=== PATIENT | female | born 1965 | race Caucasian/White ===

== ENCOUNTER 2018-09-02 01:08 | Inpatient (IN) | payer MEDICAID ==
[2018-09-02] VITALS (7 sets, daily range): BP systolic 127–164; BP diastolic 46–96; Ht 154.9 cm; Wt 56.2 kg
[~2018-09-02] VITALS: Ht 154.9 cm; Wt 56.2 kg
[2018-09-02] MEDS ORDERED: COZAAR25 MG (01:17)
[2018-09-02] MEDS ORDERED: LIPITOR20 MG (01:17)
[2018-09-02] MEDS ORDERED: TOPROL XL25 MG (01:17)
[2018-09-02] MEDS ORDERED: INHALERS (01:17)
[2018-09-02] MEDS ORDERED: FUROSEMIDE20 MG (01:17)
[2018-09-02 01:34] LABS: HEMATOCRIT 34.2 % (36.0-48.0); HEMOGLOBIN 11.8 g/dL (12-16); LYMPHOCYTES 20.3 % (15-50); MCH 30.4 pg (26.0-34.0); MCHC 34.5 g/dL (31.0-37.0); MCV 88.1 fL (80.0-100.0); MEAN PLATELET VOLUME 9.9 fL (7.4-10.4); NEUTROPHILS 68.9 % (40-80); PLATELET COUNT 208 10x3/uL (130-400); RBC 3.88 10x6/uL (4.00-5.40); RDW 13.9 % (11.5-14.5); WBC 8.4 10x3/uL (4.8-10.8)
[2018-09-02 01:42] LABS: APTT 25.9 SECONDS (22.8-39.4); INR 1.05 (0.85-1.17); PROTIME 13.2 SECONDS (11.6-15.0)
[2018-09-02 01:50] LABS: ALBUMIN 2.6 g/dL (3.4-5.0); ALKALINE PHOSPHATASE 69 U/L (46-116); ALT (SGPT) 19 U/L (10-68); BILIRUBIN - TOTAL 0.67 mg/dL (0.2-1.3); CALC OSMOLALITY 278 mosm/kg (275-300); CALCIUM 8.5 mg/dL (8.5-10.1); CARBON DIOXIDE 25.7 mmol/L (21.0-32.0); CHLORIDE - SERUM 101 mmol/L (98-107); CREATININE - SERUM 0.8 mg/dL (0.6-1.3); GLUCOSE 124 mg/dL (74-106); POTASSIUM - SERUM 3.1 mmol/L (3.5-5.1); PROTEIN - SERUM 7.2 g/dL (6.4-8.2); SODIUM 139 mmol/L (136-145); UREA NITROGEN 12 mg/dL (7-18); eGFR NON AFRICAN AMERICAN 79 mL/min (90-120)
[2018-09-02 02:07] LABS: CKMB 1.5 U/L (0.0-3.6); CREATINE KINASE 71 UL (21-215); MAGNESIUM - SERUM 1.7 mg/dL (1.8-2.4)
[2018-09-02 02:11] LABS: TROPONIN-I 0.081 ng/mL (0.000-0.060)
--- NOTE | 2018-09-02 02:12 | NUR ---
PT AMBULATED TO RESTROOM INDEPENDENTLY.
--- NOTE | 2018-09-02 03:34 | NUR ---
PT GIVEN WARM BLANKETS.
--- NOTE | 2018-09-02 05:01 | NUR ---
PT'S IV ROCEPHIN FINISHED.
--- NOTE | 2018-09-02 05:20 | NUR ---
PT ARRIVED ON UNIT VIA WHEELCHAIR, ESCORTED BY WATER CONTROL SUPERVISOR. POSITIONED IN BED FOR COMFORT. PLACED SCD'S ON PER ORDER. PLACED TELEMETRY ON PER ORDER AND PT READING [address] AT THIS ASSESSMENT. ORIENTED TO ROOM AND CALL LIGHT. NON SKID SOCKS PLACED FOR SAFETY. SIDE RAILS UP X2, BED AT LOWEST LEVEN AND LOCKED.
--- NOTE | 2018-09-02 05:25 | NUR ---
IV FLUIDS CONTINUED FROM ER...NS @ 100. RE-STARTED IVPB ZITHROMAX PER ORDER.
--- NOTE | 2018-09-02 05:56 | NUR ---
ADMISSION ASSESSMENT AND HISTORY COMPLETE.
--- NOTE | 2018-09-02 19:00 | NUR ---
PT ALERT AND ORIENTED WHEN ENTERING THE ROOM. PT HAS MORPHINE CIRCULAR SAW FILER A. ABDOMINAL SCARRING NOTED FROM PREVIOUS SURGERIES. NO OTHER COMPLAINTS AT THIS TIME. PT HAS COLOSTOMY. PROVIDES SELF CARE. CALL LIGHT IN HAND.
[2018-09-03 05:27] VITALS: BP 161/104
--- NOTE | 2018-09-03 06:51 | NUR ---
I CONCUR WITH TALENT ADVISOR ASSESSMENT.
[2018-09-03 06:54] LABS: BASOPHILS 0 % (0-2); EOSINOPHILS 0 % (0-7); HEMATOCRIT 33.8 % (36.0-48.0); HEMOGLOBIN 11.2 g/dL (12-16); IMMATURE GRANULOCYTES 0.3 % (0-5); LYMPHOCYTES 10.5 % (15-50); MCH 29.4 pg (26.0-34.0); MCHC 33.1 g/dL (31.0-37.0); MCV 88.7 fL (80.0-100.0); MEAN PLATELET VOLUME 10.8 fL (7.4-10.4); MONOCYTES 1.2 % (2-11); RBC 3.81 10x6/uL (4.00-5.40); RDW 13.8 % (11.5-14.5); WBC 7.6 10x3/uL (4.8-10.8)
[2018-09-03 07:02] LABS: PLATELET COUNT 252 10x3/uL (130-400)
[2018-09-03 07:11] LABS: CARBON DIOXIDE 23.1 mmol/L (21.0-32.0); CHLORIDE - SERUM 101 mmol/L (98-107); CREATININE - SERUM 0.8 mg/dL (0.6-1.3); POTASSIUM - SERUM 3.5 mmol/L (3.5-5.1); SODIUM 136 mmol/L (136-145); eGFR NON AFRICAN AMERICAN 79 mL/min (90-120)
[2018-09-03 07:13] LABS: CALC OSMOLALITY 277 mosm/kg (275-300); GLUCOSE 181 mg/dL (74-106); UREA NITROGEN 16 mg/dL (7-18)
[2018-09-03 09:00] VITALS: BP 150/99
[2018-09-03 13:40] VITALS: BP 160/99
[2018-09-03 18:20] VITALS: BP 115/49
[2018-09-03 19:50] VITALS: BP 142/99
--- NOTE | 2018-09-03 20:30 | NUR ---
PT ALERT AND ORIENTED WHEN ENTERING THE ROOM. PATIENT LUNGS PRESENT WITH BOTH INSPIRATORY AND EXPIRATORY WHEEZES AND A PRODUCTIVE COUGH. PROVIDED PATIENT WITH INCENTIVE SPIROMETER AND PROVIDED INSTRUCTIONS ON USE AND HOW OFTEN. PATIENT PROVIDED RETURN DEMONSTRATION. NO OTHER COMPLAINTS AT THIS TIME.
--- NOTE | 2018-09-04 04:59 | NUR ---
RN NOTE: AGREE WITH THREAD PULLING MACHINE ATTENDANT ASSESSMENT.
[2018-09-04 06:33] VITALS: BP 114/70
[2018-09-04 06:51] LABS: BASOPHILS 0 % (0-2); EOSINOPHILS 0 % (0-7); HEMOGLOBIN 10.4 g/dL (12-16); IMMATURE GRANULOCYTES 0.3 % (0-5); LYMPHOCYTES 7.3 % (15-50); MCH 29.5 pg (26.0-34.0); MCHC 32.5 g/dL (31.0-37.0); MEAN PLATELET VOLUME 10.1 fL (7.4-10.4); NEUTROPHILS 89.4 % (40-80); PLATELET COUNT 286 10x3/uL (130-400); RBC 3.52 10x6/uL (4.00-5.40); RDW 14.2 % (11.5-14.5)
[2018-09-04 06:57] LABS: MCV 90.9 fL (80.0-100.0); WBC 13.8 10x3/uL (4.8-10.8)
[2018-09-04 07:16] LABS: ALBUMIN 2.4 g/dL (3.4-5.0); ANION GAP 15.9 mmol/L (8-16); BILIRUBIN - TOTAL 0.35 mg/dL (0.2-1.3); CALCIUM 7.8 mg/dL (8.5-10.1); CARBON DIOXIDE 21.9 mmol/L (21.0-32.0); CREATININE - SERUM 0.9 mg/dL (0.6-1.3); POTASSIUM - SERUM 3.8 mmol/L (3.5-5.1); PROTEIN - SERUM 6.5 g/dL (6.4-8.2)
--- NOTE | 2018-09-04 07:50 | NUR ---
PT C/O FEET BEING SWOLLEN, PT STATES SHE TAKES LASIX DAILY BUT RAN OUT IN MID JULY AND WOULD LIKE THEM TO BE RESTARTED, ADVISED PT TO TALK TO IN REGARDS TO RETARTING HOME MEDS. COMPLETED PT HOME LIST, CONTINUE WITH PLAN OF CARE
[2018-09-04 09:40] VITALS: BP 121/88
--- NOTE | 2018-09-04 14:00 | NUR ---
RN NOTE: PT LYING IN BED WITH MASK OVER EYES. LUNCH TRAY IN FRONT OF PT, WOKE PT TO EAT LUNCH, PER PT NOT VERY HUNGRY AND GETS IN THESE MOODS AT TIMES, NO NEEDS VOICED, CL IN REACH BED IN LOWEST POSITION
[2018-09-04 14:15] VITALS: BP 134/91
--- NOTE | 2018-09-04 15:02 | NUR ---
PT GOT IN SHOWER THIS MORNING AND HAS TAKEN HER NICOINE PATCH OFF BEFORE GETTING IN, PT IS NOW TELLING RT THAT SHE IS DYING FOR A NICOTINE PATCH, TIRED TO WAST THE ONE FROM EARLIER BUT PYXSIS DID NOT PULL UP
[2018-09-04 18:48] VITALS: BP 154/98
[2018-09-04 20:00] VITALS: BP 152/105
[2018-09-05 04:00] VITALS: BP 121/85
[2018-09-05 05:06] LABS: BASOPHILS 0 % (0-2); EOSINOPHILS 0 % (0-7); HEMATOCRIT 32.4 % (36.0-48.0); HEMOGLOBIN 10.5 g/dL (12-16); IMMATURE GRANULOCYTES 0.5 % (0-5); LYMPHOCYTES 7.3 % (15-50); MCH 29.4 pg (26.0-34.0); MCHC 32.4 g/dL (31.0-37.0); MCV 90.8 fL (80.0-100.0); MEAN PLATELET VOLUME 10.1 fL (7.4-10.4); MONOCYTES 4.4 % (2-11); NEUTROPHILS 87.8 % (40-80); PLATELET COUNT 308 10x3/uL (130-400); RBC 3.57 10x6/uL (4.00-5.40); RDW 14.2 % (11.5-14.5); WBC 14.4 10x3/uL (4.8-10.8)
[2018-09-05 05:21] LABS: ALBUMIN 2.5 g/dL (3.4-5.0); ANION GAP 16.9 mmol/L (8-16); BILIRUBIN - TOTAL 0.57 mg/dL (0.2-1.3); CALCIUM 8.1 mg/dL (8.5-10.1); CARBON DIOXIDE 19.4 mmol/L (21.0-32.0); CREATININE - SERUM 0.9 mg/dL (0.6-1.3); POTASSIUM - SERUM 4.3 mmol/L (3.5-5.1); PROTEIN - SERUM 6.6 g/dL (6.4-8.2)
--- NOTE | 2018-09-05 07:25 | NUR ---
PT RESTING IN BED, EYES OPEN. PT ALERT AND ORIENTED. PT UP AD DAVID. PT HAS COLOSTOMY LEFT UPPER QUADRANT. SCARRING ON ABD. PT ON ELECTROLYTE PROTOCOL. PT HAS SCDS PRESENT AND ON. PT ON 3L O2, NC. PT ON TELEMETRY [address] ST. IV TO RIGHT FOREARM, NS INFUSING @ 100, MORPHINE ACIDIZER HELPER 1-10-10. SITE PATENT WITHOUT REDNESS OR SWELLING. NO C/O PAIN. NO S/S OF ACUTE DISTRESS NOTED. CALL LIGHT IN REACH. WILL CONTINUE TO MONITOR.
[2018-09-05 08:23] VITALS: BP 142/94
--- NOTE | 2018-09-05 11:54 | NUR ---
NUTRITION F/U PT TOLERATING REG DIET WITH 100% INTAKE BREAKFAST. WILL CONTINUE TO HONOR FOOD PREFERENCES, MONITOR PO INTAKE. RD FOLLOWING
[2018-09-05 12:16] VITALS: BP 136/92
[2018-09-05 15:08] VITALS: BP 147/106
--- NOTE | 2018-09-05 15:23 | NUR ---
PT UPSET AND WANTING TO LEAVE AMA. NOTIFIED DR. HDZ, [employer] SORTER JEREMY, CHARGE ENTRY SPECIALIST GREGOR. PT STATED SHE WANTS TO LEAVE BECAUSE HER MORPHINE PLASTIC SURGERY NURSE WAS DISCONTINUED AND THE TORADOL WILL NOT HELP CONTROL HER PAIN, SO SHE IS GOING TO GO HOME TO BETTER CONTROL HER PAIN. DISCONTINUED IV, CATHETER TIP INTACT. PT SIGNED AMA FORM, LEFT WITH AND DAUGHTER AD DAVID.
[2018-09-05 15:38] LABS: % SATURATION 10 % (15-55); IRON 25 ug/dl (35-150); TOTAL IRON BIND CAPACITY 234 ug/dl (260-445); UNSAT IRON BIND CAPACITY 209 ug/dl (150-375)
[2018-09-06 10:22] LABS: FOLATE (FOLIC ACID) - SERUM 14.6 ng/mL (>3.0)
== END 2018-09-05 15:28 | disposition left against medical advice (07) | DRG 193 ==
LOC: D.ER 01:08 → D.EDHOLD 03:35 → D.MS 03:35 → D.SDCHOLD 15:42 → D.MS 15:47
PROVIDERS: Family Medicine; Internal Medicine Nephrology; ADMIT Family Medicine Adult Medicine
DX: J18.9 Pneumonia, unspecified organism (principal); J96.01 Acute respiratory failure with hypoxia; J44.1 Chronic obstructive pulmonary disease with (acute) exacerbation; F17.213 Nicotine dependence, cigarettes, with withdrawal; J90 Pleural effusion, not elsewhere classified; I71.4 Abdominal aortic aneurysm, without rupture; R59.0 Localized enlarged lymph nodes; M06.9 Rheumatoid arthritis, unspecified; I25.10 Atherosclerotic heart disease of native coronary artery without angina pectoris; Z93.3 Colostomy status; D64.9 Anemia, unspecified

== ENCOUNTER → 2020-11-19 13:46 | Outpatient (CLI) | payer MEDICAID ==
[2018-09-02 13:20] VITALS: BMI 23.4
[~2020-11-19 13:46] MED LIST: COZAAR25 MG; FUROSEMIDE20 MG; INHALERS; LIPITOR20 MG; TOPROL XL25 MG
== END | disposition home or self-care (01) ==
LOC: D.CT 13:46
PROVIDERS: ATTEND Nurse Practitioner
DX: K43.5 Parastomal hernia without obstruction or gangrene (principal)